=== PATIENT | male | born 1955 | race Caucasian/White ===

== ENCOUNTER → 2017-06-27 05:45 | Outpatient (CLI) | payer OTHER, SELFPAY ==
[2017-06-27 07:18] LABS: AST(SGOT) 28 U/L (15-37); Alanine Aminotransfer ALT/SGPT 30 U/L (16-61); Alkaline Phosphatase 111 U/L (45-117); Bilirubin, Direct 0.23 mg/dL (0.00-0.30); Cholesterol 176 mg/dL (200); Globulin 4.1 g/dL (2.2-4.2); High Density Lipoprotein 56 mg/dL; Protein, Total 8.1 g/dL (6.4-8.2); Triglycerides 75 mg/dL; Very Low Density Lipoprotein 15 mg/dL (5-40)
== END ==
PROVIDERS: Visit Provider Nurse Practitioner Family
DX: E78.5 Hyperlipidemia, unspecified (principal)
CPT/HCPCS: 36415; 80061; 80076

== ENCOUNTER → 2018-03-06 08:58 | Outpatient (CLI) | payer MEDICAID, SELFPAY ==
--- NOTE | 2018-03-06 09:15 | RAD_ITS ---
PROCEDURE: Fluoroscopic guided Hip Injection DATE: March 06, 2018. INDICATION: Male, 63 years old. Chronic hip pain. Osteoarthritis. PHYSICIAN: Alvin Daugherty M.D. MEDICATIONS: 6 mg of the betamethasone and 3 cc of 1% lidocaine. 2% lidocaine administered subcutaneously for local anesthesia. ACCESS SITE: Right hip. NEEDLE: 22-gauge spinal needle. FLUOROSCOPY TIME (if supplied): (35 seconds) minutes/seconds FINDINGS: The risks, benefits, and alternatives to the procedure were explained to the patient. The specific risks of bleeding, infection, and neurovascular injury were detailed and accepted. Witnessed informed consent was obtained. A 22-gauge spinal needle was positioned under radiographic fluoroscopic localization. Approximately 2 cc of Isovue 300 instilled for localization purposes. Medication was then injected. The patient tolerated the procedure well without any immediate complications. The patient was placed supine with head elevated and returned to the floor in stable condition. RAD/Inj/Asp John Jt Should/Hip/Knee IMPRESSION: 1. Successful fluoroscopic guided hip injection. Electronically Signed: Alvin Daugherty MD at 10:02 EST Tel [phone], Service support ,
== END ==
PROVIDERS: PCP Nurse Practitioner Family; Referring Provider Nurse Practitioner Family; Visit Provider Physician Assistant Surgical
DX: M16.11 Unilateral primary osteoarthritis, right hip (principal)
CPT/HCPCS: 20610; 77002; Q9965; J0702

== ENCOUNTER 2018-10-23 10:13 | Inpatient (IN) | payer MEDICAID, SELFPAY ==
--- NOTE | 2018-09-28 23:04 | PCM.HP.BLA ---
History and Physical Patient Name: Elgin Hoyos : 1955 From: VITO SEPULVEDA PA-C DATE OF SURGERY: 10/20/2018 SCHEDULED PROCEDURE: right total hip arthroplasty HISTORY OF PRESENT ILLNESS: Preoperative history and physical exam was performed on September 26, 2018. This is a 63-year-old male who has had ongoing pain for the past couple years. Patient has had a previous left total hip arthroplasty by Dr. Terrell Mascorro February 10, 2014. Patient states his pain has progressively become worse over the past several months. Patient has had a previous corticosteroid injection in March which only gave him approximately 3 weeks of relief. Patient states he has increased pain with walking. He has difficult time with activities of daily living including bathing/showering, getting dressed, housework, and shopping. Patient has tried conservative measures consisting of rest, elevation with minimal relief. He only received 3 weeks relief with the right hip intra-articular injection. Patient has been through formal physical therapy and home exercises without relief in symptoms. He has been using oral medications consisting of acetaminophen. He denies previous surgery on the right hip. Patient has medical history pertinent for previous heart bypass in 2012. He has hypertension and coronary artery disease. He currently denies chest pain, reverse chills, recent infections, or shortness of breath. We are getting surgical clearance from patient's agent producer Dr. King. After failing conservative measures and discussing treatment options with Dr. Terrell Mascorro, the patient would like to proceed with a right total hip arthroplasty. REVIEW OF SYSTEMS: ROS: Const: Denies anorexia, change in appetite, fever, difficulty sleeping, weight change. CV: Denies chest pain, heart murmur, irregular heartbeat and peripheral vascular disease. Resp: Denies asthma, cough, pneumonia, sleep apnea, shortness of breath, tuberculosis and wheezing. GI: Denies constipation, diarrhea, heartburn, nausea, rectal itching, bloody stools and vomiting. : Denies incontinence. Musculo: Reports pain, but denies leg swelling, trouble walking and weakness. Skin: Denies Raynaud's, history of shingles and tattoo. Neuro: Denies ambulatory dysfunction, dizziness, numbness/tingling and tremor. Psych: Denies anxiety, depression, insomnia, mental illness and stress. Jerson/Lymph: Denies anemia, bleeding/bruising tendency and past transfusion. Reviewed, no changes. PAST MEDICAL HISTORY: Advance Care Plan: No Advance Directives Effective Date: 02/20/2018 PMH: Medical Problems: High Blood Pressure, Arthritis, Inflammatory Polyarthropathy, Hypercholesterolemia, Coronary Artery Disease (CAD) Accidents: None Surgical Hx: Heart Ablation - 5 YEARS AGO [facility] Heart Bypass (CABG) LT THR - (02/10/2014) K @ [facility] Anesthesia Complications: None Assistive Devices: Glasses Reviewed, no changes. SOCIAL HISTORY: SH: Marital: Single.Occupation: Retired.Work Status: Currently Working.Hand Dominance: Right-handed. Personal Habits: Cigarette Use: Former Cigarette Smoker.Smokeless Tobacco: Never Used Smokeless Tobacco.E-Cigarette Use: Never used.Alcohol: Has consumed alcohol in the past.Drug Use: Denies Use.Enjoy Exercising: Never Exercises. Reviewed and updated. VITALS: Ht: 70.5 Wt: 183lb Wt k.009 BMI: 25.9 BP: 174/82 Pulse: 80 Resp: 20 T: 97.4 T: 36.3C ALLERGIES: Lipitor MEDICATIONS: Metoprolol Tartrate 50mg 1 tab PO bid, Pravastatin Sodium 40 mg 1 tab by mouth at bedtime, [place] 3 1000 mg 1po bid, Ezetimibe 10 mg 1po qday, Prilosec 40 mg 1po bid, Hydralazine HCL 25 mg take 1 tablet by mouth twice daily, Amlodipine Besylate 10 mg 1 by mouth every day, Aspirin 81 81 mg 1 pill 2x/day by mouth PRE-OP EXAM: General appearance:NORMAL Other: Eyes: Conjunctivae and lids: NORMAL Pupils: ERR Ears, Nose, Mouth, and Throat: NORMAL Other: Inspection of lips, teeth and gums: NORMAL Other: Neck: Examination of neck: no masses noted. Respiratory: Assessment of respiratory effort: NORMAL Other: Auscultation of lungs: clear to auscultation no wheezes, rhonchi or rales. Cardiovascular: Auscultation of heart: regular rate and rhythm, no murmurs, gallops or rubs. Gastrointestinal: Exam of abdomen: soft, nontender, nondistended bowel sounds present. PHYSICAL EXAMINATION: Patient walks with an antalgic gait. Patient has tears to palpation over the lateral aspect of the right hip. Right hip range of motion limited with internal rotation 5, external rotation 15, flexion 90. There is increased pain with internal rotation, external rotation and flexion. Sensation intact to light touch. Neurovascularly intact. IMAGING STUDIES: X-rays were obtained at [facility] on September 26, 2018 of the right hip including AP and crossfire lateral which reveals severe osteoarthritis with [id number] joint loss, subchondral sclerosis, osteophyte formation, and subchondral cyst formation. No acute findings for fracture. No lytic or blastic lesions. IMPRESSION: 1. Severe right hip osteoarthritis 2. Hypertension 3. Hypercholesterolemia 4. Coronary artery disease 5. History of previous heart bypass 2012 and heart ablation 5 years ago PLAN: Dr. Terrell Mascorro did discuss and review with the patient all treatment options including surgical versus nonsurgical options. Patient does wish to proceed with the above-stated procedure. Potential risks, benefits, and complications of the procedure were discussed in detail including but not limited to , infection, nerve and blood vessel damage, persistent pain, numbness, tingling, paresthesias, blood clot, pulmonary embolism, and requirement for possible further surgery. The patient expressed full understanding and has no further questions for the doctor. Patient does agree to proceed with the above-stated procedure and has signed the surgery consent form. This dictation was created using voice recognition software. Phonetic and/or grammatical errors may exist.. ___ I have re-examined the patient. There are no clinical changes since date of exam. ___ See progress notes for changes. ___ Dictated on admission Date: Time: Signature:
[2018-09-29 14:21] VITALS: BP 162/79; PULSE 75; RESP 16; TEMP 36.6; O2SAT 96; BMI 25.0
--- NOTE | 2018-09-29 14:39 | SDCEKG_ITS ---
Test Reason : Blood Pressure : / mmHG Vent. Rate : 070 BPM Atrial Rate : 070 BPM P-R Int : 126 ms QRS Dur : 140 ms QT Int : 416 ms P-R-T Axes : 066 081 015 degrees QTc Int : 449 ms Normal sinus rhythm Right bundle branch block T wave abnormality, consider lateral ischemia ; IVCD Effect Abnormal ECG Confirmed by CHRISSY HUTCHINSON, AMADOU ([id number]), development editor COBY CARNEY ([id number]) on 10/01/2018 10:08:27 AM Referred By: Terrell Mascorro Confirmed By:AMADOU LOWE MD
[2018-09-29 15:09] LABS: Absolute Lymphocyte Count 1.85 X10^3/uL (0.83-4.51); Absolute Neutrophil Count 5.6 X10^3/uL (2.0-7.7); Basophil# 0.09 X10^3/uL; Eosinophil# 0.34 X10^3/uL; Eosinophils% 3.9 % (0-5); Hematocrit 40.4 % (40-54); Hemoglobin 13.1 g/dL (13.0-16.5); Lymphocyte # 1.85 X10^3/ul (4.0); Lymphocyte % 21.4 % (19-41); Mean Corp Hgb Conc 32.4 g/dL (32-36); Mean Corpuscular Hgb 29.2 pg (27.0-32.0); Mean Corpuscular Volume 90.2 fL (80-94); Mean Platelet Vol. 10.5 fl (6.2-12.0); Monocyte# 0.77 X10^3/uL; Monocyte% 8.9 % (0-10); NRBC Flagged by Analyzer 0 % (0-5); Neutrophil # 5.57 X10^3/uL (2.7-7.7); Neutrophil % 64.3 % (47-70); Platelet Count 370 K/mm3 (150-450); RBC Distribution Width SD 42.5 fl (35.1-43.9); Red Blood Count 4.48 M/mm3 (4.6-6.2); White Blood Count 8.7 K/mm3 (4.4-11.0)
[2018-09-29 15:49] LABS: Anion Gap 9 (5-15); BUN 34 mg/dL (7-18); Calcium,Total 9.2 mg/dL (8.5-10.1); Chloride 106 mmol/L (98-107); EST Glomerular Filtration Rate 44 mL/min (>60); Est Glom Filt Rate - Afr Amer 53 mL/min (>60); Estimated Creatinine Clearance 49.45 ml/min; Glucose 115 mg/dL (74-106); Potassium 4.2 mmol/L (3.5-5.1); Sodium Level 138 mmol/L (136-145)
[2018-10-20] MEDS: Cefazolin 2 GM in 0.9% Normal Saline 100 ML IV (12:13)
[2018-10-23] VITALS (11 sets, daily range): BP systolic 111–169; BP diastolic 52–91; PULSE 59–87; RESP 16–18; TEMP 36.4–37; O2SAT 97–100; BMI 25.0
--- NOTE | 2018-10-23 | HIP_PTH ---
PATIENT: MARCIA YUNG LOC: MS3 U#:[id number] AGE/SX: 63/M ROOM: [facility] [place] RE10/23/[address]: Dr. Terrell Mascorro DO : 1955 BED: 1 DIS: 10/24/2018 SPEC #: [id number] RECD: 10/23/18 14:10 STATUS: EZEArina REAlden #: [id number] TNE: 10/23/18 00:[address]: Terrell Mascorro DEPT: SURGICAL PATHOLOGY RECD BY: Diego Ham ENTERED: 10/23/18 14:11 SP TYPE: TOTAL HIP OTHR DR: Marisol Jaimes, SOLUTION SALES SENIOR EXECUTIVE-C Tissues: Hip, NOS Procedures: Decalcification bone/plaque Surgery Specimen Level IV HEADER OPERATION: ERAS, Total hip replacement PRE-OP DIAGNOSIS: Severe right hip osteoarthritis TISSUE SUBMITTED: Right femoral head bone and tissue MICROSCOPIC DIAGNOSIS Bone and soft tissue of right hip, total hip resection: Severe degenerative joint disease. Synovium with mild hyperplasia and chronic inflammation. AM:ata 10/30/18 MICROSCOPIC DESCRIPTION Slides are reviewed. GROSS DESCRIPTION Received is one container labeled with the patient's name and designated right femoral head bone and tissue. The specimen consists of a sierra femoral head with portion of femoral neck. The femoral head measures 6 x 5.5 x 5.5 cm and the femoral neck measures up to 2 cm in length. The articular surface displays prominent osteophyte formation, eburnation and bone erosion. Also present in the specimen container are multiple irregular fragments of bone reamings and pink-yellow soft tissue measuring in aggregate 8 x 8 x 3 cm. Cytotechnologist/Histotechnologist sections are submitted in two cassettes as follows: 1 - soft tissue, 2 - bone after decalcification. / SJ:sp 10/23/18 TC:3 [facility]: [id number]
[2018-10-23] MEDS: Gabapentin 600 MG Tablet PO ×3 (11:02→11:14)
[2018-10-23] MEDS: Acetaminophen 500 MG Tablet 1000 MG PO ×3 (11:03→21:28)
[2018-10-23] MEDS: Magnesium Sulfate 4gm/100mL 4 GM/100 ML IV.SOLN. IV (11:05)
[2018-10-23] MEDS: Lactated Ringers 1,000 ML 75 ML IV (11:15)
--- NOTE | 2018-10-23 12:09 | RAD_ITS ---
STUDY: X-RAY - PELVIS AND RIGHT HIP REASON FOR EXAM: Male, 63 years old. The patient is status post right hip replacement. TECHNIQUE: 2 views of the pelvis and hip. COMPARISON: None. FINDINGS: The patient is status post right hip replacement. There is good alignment. Postoperative soft tissue swelling. Remote left hip replacement. RAD/Hip Min 2 Views (Portable) IMPRESSION: Status post right hip replacement. There is good alignment. Postoperative soft tissue changes. Electronically Signed: Alvin Daugherty, at 14:50 EDT , Service support ,
[2018-10-23] MEDS: Cefazolin 2 GM in 0.9% Normal Saline 100 ML IV (12:13)
--- NOTE | 2018-10-23 13:11 | PCM.OPRPT ---
Report of Operation Date of Procedure: 10/23/18 Pre-Operative Diagnosis: OA right hip Post-Operative Diagnosis: same Surgery/Procedure Performed:: Right THR Description of Surgical Findings:: Primary Surgeon/Physician: Terrell Mascorro deck scaler: Yefri Thapa PA-C deck scaler: Pre-Operative Diagnosis: OA right hip Post-Operative Diagnosis: same Surgery/Procedure Performed: Right THR Estimated Blood Loss: 75 cc Specimen's Removed: bone Type of Anesthesia: spinal ASA Class: ASA3 Severe Disease Implants: [Dorene size 54 tritanium cup with neutral length MDM liner\head, Size 6 Accolade 2 stem ] Surgical Indications: Patient has severe end-stage osteoarthritic changes in the [right ] hip. They have failed conservative measures including activity modification, anti-inflammatories, use of assistive devices. This to the point where the pain affects their ability to enjoy life and complete activities of daily living without discomfort. Patient has elected to undergo the above procedure Procedure Description: The patient was greeted in the preoperative area the [right ] hip was marked with surgical marker preoperative antibiotics administered. The patient was then taken to or suite in stable condition. Preoperative tranexamic acid was also utilized. Once the patient was placed in the supine position on the operating room table and once adequate anesthesia was obtained they were then placed in the lateral decubitus position with the surgical hip facing the field. All bony prominences were well-padded. A commercial hip position was utilized. The appropriate extremity was then prepped and draped in usual sterile fashion. Ioban was placed on the skin. Surgical timeout was performed and surgery was commenced. A standard posterior approach to the hip was then performed. Incision was planned and carried out with a #10 blade scalpel. Dissection was then carried length of the incision to the IT band which was split proximally and distally. A Charnley retractor was then placed for soft tissue retraction exposing the piriformis. A standard posterior capsulotomy was performed. Severe eburnation of bone was noted and periarticular osteophytes were identified consistent with severe end-stage osteoarthritis. A femoral neck osteotomy guide was used to sara the proximal femur. A femoral osteotomy was then created approximately 1 fingerbreadth above the lesser trochanter. This was measured and placed on the back table. Once this was complete acetabular retractors were placed anteriorly and posteriorly. Labrum was then removed from the acetabulum exposing the entire cup of the acetabulum. Sequential reaming was then commenced and the acetabulum was medialized and sequentially widened in order to accommodate appropriate size cup. The acetabular cup was then impacted into position to the appropriate depth referencing approximately 30? anteversion and 45? of inclination. Excellent purchase was obtained. [2] appropriate sized cancellous screws were placed in the cup. An appropriate size MDM liner was then placed. Attention was then turned to the femoral preparation. The hip was placed in the 90/90 position and a lateralizing box osteotome was utilized. Femoral starting awl was used followed by sequential broaching to the appropriate size. Excellent purchase was obtained with the stem no stem subsidence and excellent rotational stability was confirmed. A calcar reamer was then used in the trial head neck was placed on the broach. The hip was then located and taken through full range of motion flexion internal and external rotation as well as extension. Excellent stability was noted no impingement was identified of the components and leg lengths appear to be appropriate. The hip was at this point dislocated and the trial femoral components were removed. The final femoral stem was then implanted and impacted to the appropriate depth. Again excellent purchase was obtained no stem subsidence or rotational instability was noted. The hip was once again trialed and confirmation of leg length and stability was performed. Soft tissue tension also appeared to be appropriate. At this point the hip was redislocated and the trunnion was cleaned and dried meticulously in the appropriate size MDM femoral head was placed on the clean dry trunnion using a 12/14 Leonardo taper. The hip was once again relocated and again taken through full range of motion. I did inject a cocktail of postoperative pain medication in the deep and superficial tissues. Copious irrigation was performed. Anatomic closure of the piriformis tendon was performed through drill holes in the greater trochanter. A #1 Vicryl 0 Vicryl was utilized in subcutaneous tissue and surgical gilda were placed in the skin. A well-padded nonadherent dressing was applied. Patient was taken to PACU in stable condition. No complications were identified. Will follow standard postop protocol for total hip arthroplasty. My assistant store manager operations played a vital role in the procedure beginning with positioning, holding retraction of soft tissues, positioning the leg to optimize visualization during the procedure and assisting with wound closure. deck scaler: Dwayne Thapa Type of Anesthesia:: Spinal Anesthesiologist: Juliano Dorsey Specimen's removed: bone Estimated Blood Loss (mL): 75cc - Admit VTE Documentation VTE Present on Admission: No VTE Mechan Device Prophylaxis: SCD's, Thigh High DIANNA Hose VTE Pharm Prophylaxis ordered?: Yes
[2018-10-23] MEDS: Lactated Ringers 1,000 ML 125 ML IV ×3 (14:15→21:00)
[2018-10-23] MEDS: Aspirin 325 MG Tablet PO (16:52)
[2018-10-23] MEDS: Cefazolin 1 GM/50 ML BAG IV (20:59)
[2018-10-23] MEDS: Pravastatin 40 MG Tablet PO (21:28)
[2018-10-23] MEDS: hydrALAZINE 25 MG Tablet PO (21:28)
[2018-10-23] MEDS: Metoprolol Tartrate 50 MG Tablet PO (21:28)
[2018-10-23] MEDS: Senna/Docusate Sodium 1 Tablet 2 TABLET PO (21:28)
[2018-10-23] MEDS: cycloBENZAPRine HCl 10 MG Tablet PO (21:28)
[2018-10-23] MEDS: Pantoprazole Sodium 40 MG Tablet PO (21:28)
[2018-10-24] VITALS (7 sets, daily range): BP systolic 86–140; BP diastolic 46–74; PULSE 63–89; RESP 16–21; TEMP 36.4–36.8; O2SAT 96–99
[2018-10-24] MEDS: oxyCODONE 5 MG Tablet PO ×2 (01:16→07:48)
[2018-10-24] MEDS: Cefazolin 1 GM/50 ML BAG IV (04:33)
[2018-10-24 05:11] LABS: Bedside Glucose 86 mg/dL (70-110)
[2018-10-24 05:35] LABS: Hemoglobin 10.7 g/dL (13.0-16.5); Mean Corp Hgb Conc 32.4 g/dL (32-36); Mean Corpuscular Hgb 29.1 pg (27.0-32.0); Mean Corpuscular Volume 89.7 fL (80-94); Mean Platelet Vol. 10.1 fl (6.2-12.0); Platelet Count 303 K/mm3 (150-450); RBC Distribution Width CV 12.8 % (11.6-14.6); RBC Distribution Width SD 42.1 fl (35.1-43.9); Red Blood Count 3.68 M/mm3 (4.6-6.2); White Blood Count 11.3 K/mm3 (4.4-11.0)
[2018-10-24] MEDS: Acetaminophen 500 MG Tablet 1000 MG PO ×2 (06:00→13:26)
[2018-10-24 06:11] LABS: Anion Gap 7 (5-15); BUN 13 mg/dL (7-18); BUN/Creat Ratio 10.3 RATIO (10-20); Calcium,Total 8.2 mg/dL (8.5-10.1); Chloride 105 mmol/L (98-107); Creatinine, Serum 1.26 mg/dL (0.70-1.30); EST Glomerular Filtration Rate 62 mL/min (>60); Est Glom Filt Rate - Afr Amer 74 mL/min (>60); Estimated Creatinine Clearance 66.72 ml/min; Glucose 122 mg/dL (74-106); Potassium 3.5 mmol/L (3.5-5.1); Sodium Level 137 mmol/L (136-145)
[2018-10-24] MEDS: Ondansetron 4 MG/2 ML Vial IV (06:46)
[2018-10-24] MEDS: 0.9% NaCl Peripheral Flush Adult/Peds IV (06:47)
[2018-10-24] MEDS: hydrALAZINE 25 MG Tablet PO (07:46)
[2018-10-24] MEDS: Aspirin 325 MG Tablet PO (07:46)
[2018-10-24] MEDS: amLODIPine 10 MG Tablet PO (07:47)
[2018-10-24] MEDS: Senna/Docusate Sodium 1 Tablet 2 TABLET PO (07:47)
[2018-10-24] MEDS: Ezetimibe 10 MG Tablet PO (07:47)
[2018-10-24] MEDS: Pantoprazole Sodium 40 MG Tablet PO (07:47)
[2018-10-24] MEDS: Metoprolol Tartrate 50 MG Tablet PO (07:49)
--- NOTE | 2018-10-24 09:45 | CASEMGMT ---
ESMER BIGGS Face to Face with patient for initial transition planning/care coordination assessment. RN KALYAN introduced self and role at [facility]. Patient sitting in chair, alert and oriented. Patient willing to participate in assessment and is able to answer all questions appropriately. Care providers, pharmacy, and demographics verified. Patient wishes to discharge home and is setup with [facility] for outpatient therapy . Patient states he has no further needs or concerns at this time. CM to follow for discharge planning needs that may arise. PCP: Fiona Specialists: Electrical Installation Inspector Bernie Preferred Pharmacy: [facility] Insurance: [place] Prescription Benefit: yes Living Will/HPOA: None LNOK: sister Living Arrangements: Patient lives alone in mobile home, ramp to enter the home. Transportation: friend Joshua [place]/C: Patient has walker and cane. Patient is scheduled for outpatient therapy at [facility] Disposition Plan: Patient to discharge home with outpatient therapy, family support, and follow-up plans in place. Marie NEGRETE, RN, CM
[2018-10-24] MEDS: cycloBENZAPRine HCl 10 MG Tablet PO (10:51)
--- NOTE | 2018-10-24 12:03 | PCM.PN.ORT ---
Subjective: Patient sitting up in bed. Patient states pain is well-managed. Having some mild spasms in the right quadriceps region. Patient states he is ready for discharge home. Denies chest pain, shortness breath, calf pain, nausea vomiting. Objective: Dressings clean dry intact. Negative signs and symptoms of DVT. Patient's vitals and labs within normal limits. Patient is strong dorsalis pedis, posterior tibial pulses on the right leg. Patient has good plantar flexion dorsiflexion of the right foot. Patient is afebrile. Patient has no obvious respiratory distress, speaking in full sentences. - Physical Exam General: Alert, Oriented x3, Cooperative HEENT: PERRLA Oral: Moist Mucosa Cardiovascular: Regular rate Neurological: Cranial nerves II-XII grossly intact Psych/Mental Status: Normal Affect, Alert and oriented to time, place, person, mood and affect Vital Signs Temp Pulse Resp BP Pulse Ox 97.9 F 63 16 129/74 H 99 10/24/18 11:00 10/24/18 11:00 10/24/18 11:00 10/24/18 11:00 10/24/18 11:00 Oxygen Flow Rate (L/min) 6 Oxygen Delivery Method Room Air Weight: 83.6 kg Body Mass Index (BMI) 25.0 Intake and Output for Last 24 Hours 10/22/18 10/23/18 10/24/18 23:59 23:59 23:59 Intake Total 3448.75 / 3448.75 2300 / 2300 Output Total 1225 / 1225 Balance 3448.75 / 3448.75 1075 / 1075 Laboratory Tests Past 24 Hrs 10/24/18 10/24/18 05:10 05:10 WBC 11.3 H RBC 3.68 L Hgb 10.7 L Hct 33.0 L MCV 89.7 MCH 29.1 MCHC 32.4 RDW Std Deviation 42.1 RDW Coeff of Minnie 12.8 Plt Count 303 MPV 10.1 Sodium 137 Potassium 3.5 Chloride 105 Carbon Dioxide 25.0 Anion Gap 7 BUN 13 Creatinine 1.26 Estim Creat Clear Calc 66.72 Est GFR (MDRD) Af Amer 74 Est GFR (MDRD) Non-Af 62 BUN/Creatinine Ratio 10.3 Glucose 122 H Calcium 8.2 L POC Glucose 10/23/18 10:55 POC Glucose 86 Medical Necessity - Tobacco Use Smoking Status: Former smoker Tobacco Use: Non-smoker Assessment/Plan All Active Problems (Last Reviewed 01/31/17 @ 14:11 by Seema Barros) Xbxzp-Ieppbprma-Mlpir (WPW) syndrome (Resolved) Status post right total hip arthroplasty Plan 1. Continue all pain medications as prescribed 2. Continue with outpatient physical therapy. Weight-bear as tolerated with walker 3. Aspirin 325 mg 1 p.o. every 12 hours x30 days for postop DVT prophylaxis 4. Shower 3 days 5. Follow-up as scheduled, see pink sheet 6. Discharge home today after p.m. therapy
--- NOTE | 2018-10-24 12:21 | PCM.DC.THR ---
Discharge Diet: No Restrictions Discharge Activity: May Not Drive, May Shower, Use Walker May shower in (days): 3 - only if incision is dry and without drainage. Do NOT soak/submerge in tub/pool/french/stream/hot tub. Weight Bearing Status: Weight bearing as tolerated Elevate: Operative Extremity Call your doctor if your incision/area has: Continuous Slow Oozing, Sudden Increased Bleeding, Increased Pain/ Swelling, Increased Redness, Foul Smelling Discharge Call your doctor if you observe: Fever of 101 or Higher, Inability to urinate, Inability to have a bowel movement, Shortness of breath, Fainting spells, Chest pain, Increased palpitations (irregular heartbeat), Calf discomfort, Uncontrolled pain Cleanse incision/area with: Soap & Water Allergies/Adverse Reactions: Allergies atorvastatin calcium [From Lipitor] Allergy (Verified 10/23/18 10:47) Pain in joints Medications to take at Discharge ezetimibe 10 mg tablet 10 mg PO QDAY 01/31/17 Amlodipine [Norvasc] 10 mg PO DAILY 09/29/18 Metoprolol Tartrate [Lopressor (beta jessica)] 50 mg PO BID 09/29/18 [place]-3 Fatty Acids/Fish Oil [[place] 3 1,000 mg Softgel] 2 ea PO DAILY 09/29/18 Omeprazole [Prilosec] 40 mg PO BID 09/29/18 Pravastatin [Pravachol] 40 mg PO QHS 09/29/18 hydrALAZINE [Apresoline] 25 mg PO BID 09/29/18 Acetaminophen [Tylenol] 1,000 mg PO Q8 #90 tab 10/24/18 Aspirin 325 mg PO BIDCM #60 tab 10/24/18 Oxycodone [Oxyir] 5 - 10 mg PO Q6H PRN PRN 7 Days #56 tab 10/24/18 cycloBENZAPRine HCl [Flexeril] 10 mg PO TID PRN PRN #30 tab 10/24/18 The following prescriptions were given: Aspirin 325 mg PO BIDCM #60 tab Prescription Printed cycloBENZAPRine HCl [Flexeril] 10 mg PO TID PRN PRN #30 tab PRN Reason: muscle spasms Prescription Printed Oxycodone [Oxyir] 5 - 10 mg PO Q6H PRN PRN 7 Days #56 tab PRN Reason: Severe Pain (6-12/04) Prescription Printed Acetaminophen [Tylenol] 1,000 mg PO Q8 #90 tab Prescription Printed Primary Care Physician: Marisol Jaimes NP-C [Primary Care Provider] - Test Results: Test results from this visit will be discussed in further detail at your follow-up appointment, if applicable. Please Follow Up With: Dwayne Thapa PA-C When: see pink sheet
[2018-10-24] MEDS: Tamsulosin HCl 0.4 MG Capsule PO (12:31)
--- NOTE | 2018-10-24 14:13 | NURSING ---
WHILE TRANSFERRING PT FROM CHAIR TO BED. PT GOT DIZZY AND FELL BACK INTO CHAIR. PT DID NOT FALL. ASSISTED PT BACK TO BED. VITALS WNL. EDELMIRA KNIGHT NOTIFIED THAT PT WAS DIZZY.
== END 2018-10-24 16:35 | disposition home or self-care (01) | DRG 301 ==
LOC: ACINP 10:14 → MS3 10-24 09:33
PROVIDERS: Admitting Provider Orthopaedic Surgery; Family Provider Nurse Practitioner Family; PCP Nurse Practitioner Family; Referring Provider Orthopaedic Surgery; Visit Provider Orthopaedic Surgery
PROC: 0SR90JZ Replacement of Right Hip Joint with Synthetic Substitute, Open Approach (ICD-10-PCS; CPT 27130; principal; 2018-10-23 11:35)
DX: M16.11 Unilateral primary osteoarthritis, right hip (principal); Z96.642 Presence of left artificial hip joint; I25.10 Atherosclerotic heart disease of native coronary artery without angina pectoris; I10 Essential (primary) hypertension; Z95.1 Presence of aortocoronary bypass graft; Z87.891 Personal history of nicotine dependence; E78.00 Pure hypercholesterolemia, unspecified; R33.9 Retention of urine, unspecified
CPT/HCPCS: 36415; 73502; 80048; 82962; 85025; 85027; 87081; 88305; 88311; 93005; 97110; 97162; 97166; 97530; C1776; J7120; A4216; J2405

== ENCOUNTER → 2019-01-28 15:49 | Outpatient (CLI) | payer MEDICAID, SELFPAY ==
[2018-10-23 10:49] VITALS: BMI 25.0
[2019-01-28 17:36] LABS: Absolute Lymphocyte Count 2.28 X10^3/uL (0.83-4.51); Absolute Neutrophil Count 5.6 X10^3/uL (2.0-7.7); Basophil# 0.07 X10^3/uL; Basophil% 0.7 % (0-1); Eosinophil# 0.54 X10^3/uL; Eosinophils% 5.7 % (0-5); Hematocrit 44.4 % (40-54); Hemoglobin 14.4 g/dL (13.0-16.5); Lymphocyte # 2.28 X10^3/ul (4.0); Lymphocyte % 23.9 % (19-41); Mean Corp Hgb Conc 32.4 g/dL (32-36); Mean Corpuscular Hgb 29.3 pg (27.0-32.0); Mean Corpuscular Volume 90.2 fL (80-94); Mean Platelet Vol. 11.1 fl (6.2-12.0); Monocyte# 1.03 X10^3/uL; Monocyte% 10.8 % (0-10); NRBC Flagged by Analyzer 0 % (0-5); Neutrophil # 5.59 X10^3/uL (2.7-7.7); Neutrophil % 58.7 % (47-70); Platelet Count 354 K/mm3 (150-450); RBC Distribution Width CV 13.7 % (11.6-14.6); RBC Distribution Width SD 45.3 fl (35.1-43.9); Red Blood Count 4.92 M/mm3 (4.6-6.2); White Blood Count 9.5 K/mm3 (4.4-11.0)
[2019-01-28 18:03] LABS: AST(SGOT) 20 U/L (15-37); Alanine Aminotransfer ALT/SGPT 31 U/L (16-61); Albumin, Serum 4.2 g/dL (3.2-5.0); Alkaline Phosphatase 135 U/L (45-117); Anion Gap 8 (5-15); BUN 27 mg/dL (7-18); BUN/Creat Ratio 16.2 RATIO (10-20); Calcium,Total 9.2 mg/dL (8.5-10.1); Chloride 105 mmol/L (98-107); Cholesterol 174 mg/dL (200); Creatinine, Serum 1.67 mg/dL (0.70-1.30); EST Glomerular Filtration Rate 44 mL/min (>60); Est Glom Filt Rate - Afr Amer 54 mL/min (>60); Globulin 4.3 g/dL (2.2-4.2); Glucose 121 mg/dL (74-106); High Density Lipoprotein 43 mg/dL; Protein, Total 8.5 g/dL (6.4-8.2); Sodium Level 137 mmol/L (136-145); Thyroid Stim Hormone (TSH) 0.49 uIU/mL (0.358-3.74); Triglycerides 317 mg/dL; Very Low Density Lipoprotein 63 mg/dL (5-40)
[2019-01-29 09:49] LABS: Hemoglobin A1c 5.5 % (4.2-6.3)
== END ==
PROVIDERS: Family Provider Family Medicine; PCP Family Medicine; Referring Provider Family Medicine; Visit Provider Family Medicine
DX: I10 Essential (primary) hypertension (principal); E78.00 Pure hypercholesterolemia, unspecified; R73.09 Other abnormal glucose
CPT/HCPCS: 36415; 80053; 80061; 83036; 84443; 85025

== ENCOUNTER → 2019-02-03 11:22 | Outpatient (CLI) | payer MEDICAID, SELFPAY ==
[2018-10-23 10:49] VITALS: BMI 25.0
[2019-02-03 14:06] LABS: Anion Gap 9 (5-15); BUN 21 mg/dL (7-18); BUN/Creat Ratio 14.9 RATIO (10-20); Calcium,Total 9.4 mg/dL (8.5-10.1); Chloride 103 mmol/L (98-107); Creatinine, Serum 1.41 mg/dL (0.70-1.30); EST Glomerular Filtration Rate 54 mL/min (>60); Est Glom Filt Rate - Afr Amer 65 mL/min (>60); Glucose 93 mg/dL (74-106); Potassium 4.2 mmol/L (3.5-5.1); Sodium Level 137 mmol/L (136-145)
== END ==
PROVIDERS: Family Provider Family Medicine; PCP Family Medicine; Visit Provider Family Medicine
DX: N28.9 Disorder of kidney and ureter, unspecified (principal)
CPT/HCPCS: 36415; 80048

== ENCOUNTER → 2019-07-09 13:39 | Outpatient (CLI) | payer MEDICAID, SELFPAY ==
[2018-10-23 10:49] VITALS: BMI 25.0
[2019-07-09 15:19] LABS: Absolute Lymphocyte Count 2.24 X10^3/uL (0.83-4.51); Absolute Neutrophil Count 6.3 X10^3/uL (2.0-7.7); Basophil# 0.06 X10^3/uL; Basophil% 0.6 % (0-1); Eosinophil# 0.47 X10^3/uL; Eosinophils% 4.9 % (0-5); Hematocrit 44.2 % (40-54); Lymphocyte # 2.24 X10^3/ul (4.0); Lymphocyte % 23.4 % (19-41); Mean Corp Hgb Conc 31.7 g/dL (32-36); Mean Corpuscular Hgb 29.4 pg (27.0-32.0); Mean Corpuscular Volume 92.9 fL (80-94); Mean Platelet Vol. 11.1 fl (6.2-12.0); Monocyte# 0.45 X10^3/uL; Monocyte% 4.7 % (0-10); NRBC Flagged by Analyzer 0 % (0-5); Neutrophil # 6.32 X10^3/uL (2.7-7.7); Neutrophil % 66.1 % (47-70); Platelet Count 338 K/mm3 (150-450); RBC Distribution Width CV 12.6 % (11.6-14.6); RBC Distribution Width SD 43.2 fl (35.1-43.9); Red Blood Count 4.76 M/mm3 (4.6-6.2); White Blood Count 9.6 K/mm3 (4.4-11.0)
[2019-07-09 15:50] LABS: AST(SGOT) 17 U/L (15-37); Alanine Aminotransfer ALT/SGPT 24 U/L (16-61); Albumin, Serum 3.9 g/dL (3.2-5.0); Alkaline Phosphatase 138 U/L (45-117); Anion Gap 6 (5-15); BUN 17 mg/dL (7-18); BUN/Creat Ratio 13.1 RATIO (10-20); Calcium,Total 9.1 mg/dL (8.5-10.1); Chloride 106 mmol/L (98-107); Cholesterol 153 mg/dL (200); EST Glomerular Filtration Rate 59 mL/min (>60); Est Glom Filt Rate - Afr Amer 72 mL/min (>60); Glucose 145 mg/dL (74-106); High Density Lipoprotein 44 mg/dL; Potassium 3.7 mmol/L (3.5-5.1); Protein, Total 7.9 g/dL (6.4-8.2); Sodium Level 140 mmol/L (136-145); Triglycerides 137 mg/dL; Very Low Density Lipoprotein 27 mg/dL (5-40)
[2019-07-09 15:52] LABS: Vitamin D,25 Hydroxy 22.9 ng/mL
[2019-07-10 11:02] LABS: Hemoglobin A1c 5.7 % (4.2-6.3)
== END ==
PROVIDERS: PCP Family Medicine; Visit Provider Family Medicine
DX: N28.9 Disorder of kidney and ureter, unspecified (principal); I10 Essential (primary) hypertension; E78.00 Pure hypercholesterolemia, unspecified; R73.09 Other abnormal glucose
CPT/HCPCS: 36415; 80053; 80061; 82306; 83036; 85025

== ENCOUNTER → 2019-08-26 14:22 | Outpatient (CLI) | payer MEDICAID, SELFPAY ==
[2018-10-23 10:49] VITALS: BMI 25.0
[2019-08-26 16:17] LABS: PSA,Total - Annual Screen 2.19 ng/mL (0.00-4.00)
== END ==
PROVIDERS: PCP Family Medicine; Visit Provider Family Medicine
DX: Z12.5 Encounter for screening for malignant neoplasm of prostate (principal)
CPT/HCPCS: 36415; 84153; G0103

== ENCOUNTER → 2019-09-23 13:04 | Outpatient (CLI) | payer MEDICAID, SELFPAY ==
[2018-10-23 10:49] VITALS: BMI 25.0
--- NOTE | 2019-09-23 13:08 | CT_ITS ---
STUDY: LOW DOSE CT LUNG CANCER SCREENING REASON FOR EXAM: Male, 64 years old. LUNG SCREEN, 31 YR SMOKER X 1PPD OR MORE, CURRENT NON-SMOKER X 15 YRS, OPEN HEART SURG 2012 RADIATION DOSAGE (If Supplied By Facility): CTDIvol = ( 2.55 ) mGy, DLP = ( 100.48 ) mGycm TECHNIQUE: No contrast was administered. Low dose technique was utilized (average mAS-38 and kVp 120). 1.25 mm axial source images with a slice interval of 1.25-mm were reconstructed in lung windows. 2.5 mm axial source images with a slice interval of 2.5-mm were reconstructed in lung windows. 5.0 mm axial source images with a slice interval of 5.0-mm were reconstructed in soft tissue windows. Nodule measured using lung windows on PACS and/or independent workstation with automated measurement of minimum and maximum diameter. Nodule measurement reported as average diameter rounded to the nearest whole number. Growth is defined as an increase ins size of greater than 1.5 mm. COMPARISON: None. NODULES: No nodules are seen. Emphysema: Hyperinflation. Mild degree of emphysematous changes. Endobronchial lesion: Aorta: Atherosclerotic calcific plaques. Coronary arteries: Coronary artery calcifications. Heart: Prior CABG. Pulmonary artery: Mediastinal nodes: Small benign-appearing mediastinal lymph nodes. Other chest and abdominal findings: Small hiatal hernia. Degenerative changes of the thoracic spine. CT/Low Dose CT Lung Screening IMPRESSION: Lung-RADS category 2 - Continue annual screening with LDCT in 12 months. IMPORTANT NOTES FOR USE: ACR Lung-RADS Version 1.0 Assessment Categories Release Date: June 22, 2013 Category: Coded 0-4 bases on nodule(s) with highest degree of suspicion. Negative screen is defined as categories 1 and 2; a positive screen is defined as categories 3 and 4. Category 3 and 4A nodules that are unchanged on interval CT should be coded as category 2, and individuals returned to screening in 12 months. Category 4X: Category 3 or 4 nodules with additional imaging findings that increase the suspicion of lung cancer, such as spiculation, GGN that doubles in size in 1 year, enlarged lymph notes, etc. Category Modifiers: S (significant finding unrelated to lung cancer) and C (prior history of treated lung cancer) may be added to the 0-4 Lung-RADS Electronically Signed: Alvin Daugherty, at 14:17 EDT , Service support ,
== END ==
PROVIDERS: PCP Family Medicine; Referring Provider Family Medicine; Visit Provider Family Medicine
DX: Z12.2 Encounter for screening for malignant neoplasm of respiratory organs (principal); F17.210 Nicotine dependence, cigarettes, uncomplicated
CPT/HCPCS: G0297

== ENCOUNTER → 2019-12-22 10:51 | Outpatient (CLI) | payer MEDICAID, SELFPAY ==
[2018-10-23 10:49] VITALS: BMI 25.0
[2019-12-22 12:12] LABS: Absolute Lymphocyte Count 2.26 X10^3/uL (0.83-4.51); Absolute Neutrophil Count 5.7 X10^3/uL (2.0-7.7); Basophil# 0.06 X10^3/uL; Basophil% 0.6 % (0-1); Eosinophil# 0.53 X10^3/uL; Eosinophils% 5.4 % (0-5); Hematocrit 44.8 % (40-54); Hemoglobin 14.4 g/dL (13.0-16.5); Lymphocyte # 2.26 X10^3/ul (4.0); Lymphocyte % 22.9 % (19-41); Mean Corp Hgb Conc 32.1 g/dL (32-36); Mean Corpuscular Hgb 30.2 pg (27.0-32.0); Mean Corpuscular Volume 93.9 fL (80-94); Mean Platelet Vol. 11.4 fl (6.2-12.0); Monocyte# 1.23 X10^3/uL; Monocyte% 12.5 % (0-10); NRBC Flagged by Analyzer 0 % (0-5); Neutrophil # 5.74 X10^3/uL (2.7-7.7); Neutrophil % 58.2 % (47-70); Platelet Count 315 K/mm3 (150-450); RBC Distribution Width CV 13.2 % (11.6-14.6); Red Blood Count 4.77 M/mm3 (4.6-6.2); White Blood Count 9.9 K/mm3 (4.4-11.0)
[2019-12-22 12:48] LABS: Vitamin D,25 Hydroxy 31.8 ng/mL
[2019-12-22 12:53] LABS: Hemoglobin A1c 5.6 % (3.8-5.6)
[2019-12-22 13:00] LABS: PTHIN 92.7 pg/mL (18.4-80.1)
[2019-12-22 13:15] LABS: ALB/GLOB Ratio 0.9 RATIO (0.9-2.4); AST(SGOT) 19 U/L (15-37); Alanine Aminotransfer ALT/SGPT 24 U/L (16-61); Albumin, Serum 3.8 g/dL (3.2-5.0); Alkaline Phosphatase 131 U/L (45-117); Anion Gap 4 (5-15); BUN 18 mg/dL (7-18); BUN/Creat Ratio 11.8 RATIO (10-20); Calcium,Total 9.2 mg/dL (8.5-10.1); Chloride 109 mmol/L (98-107); Cholesterol 116 mg/dL (200); Creatinine, Serum 1.52 mg/dL (0.70-1.30); EST Glomerular Filtration Rate 49 mL/min (>60); Est Glom Filt Rate - Afr Amer 60 mL/min (>60); Globulin 4.2 g/dL (2.2-4.2); Glucose 96 mg/dL (74-106); High Density Lipoprotein 53 mg/dL; Phosphorus 2.5 mg/dL (2.5-4.9); Potassium 4.9 mmol/L (3.5-5.1); Sodium Level 138 mmol/L (136-145); Triglycerides 86 mg/dL; Very Low Density Lipoprotein 17 mg/dL (5-40)
== END ==
PROVIDERS: PCP Family Medicine; Referring Provider Family Medicine; Visit Provider Family Medicine
DX: I12.9 Hypertensive chronic kidney disease with stage 1 through stage 4 chronic kidney disease, or unspecified chronic kidney disease (principal); N18.30 Chronic kidney disease, stage 3 unspecified; E78.00 Pure hypercholesterolemia, unspecified; R73.02 Impaired glucose tolerance (oral)
CPT/HCPCS: 36415; 80053; 80061; 82306; 83036; 83970; 84100; 85025

== ENCOUNTER → 2020-04-19 10:28 | Outpatient (CLI) | payer MEDICAID, SELFPAY ==
[2018-10-23 10:49] VITALS: BMI 25.0
[2020-04-19 12:50] LABS: Absolute Lymphocyte Count 1.78 X10^3/uL (0.83-4.51); Absolute Neutrophil Count 6.2 X10^3/uL (2.0-7.7); Basophil# 0.07 X10^3/uL; Basophil% 0.7 % (0-1); Eosinophil# 0.67 X10^3/uL; Eosinophils% 6.9 % (0-5); Hematocrit 42.6 % (40-54); Hemoglobin 13.6 g/dL (13.0-16.5); Lymphocyte # 1.78 X10^3/ul (4.0); Lymphocyte % 18.3 % (19-41); Mean Corp Hgb Conc 31.9 g/dL (32-36); Mean Corpuscular Hgb 29.8 pg (27.0-32.0); Mean Corpuscular Volume 93.4 fL (80-94); Mean Platelet Vol. 11.3 fl (6.2-12.0); Monocyte# 0.97 X10^3/uL; NRBC Flagged by Analyzer 0 % (0-5); Neutrophil # 6.19 X10^3/uL (2.7-7.7); Neutrophil % 63.8 % (47-70); Platelet Count 292 K/mm3 (150-450); RBC Distribution Width CV 13.2 % (11.6-14.6); Red Blood Count 4.56 M/mm3 (4.6-6.2); White Blood Count 9.7 K/mm3 (4.4-11.0)
[2020-04-19 13:01] LABS: Vitamin D,25 Hydroxy 30.4 ng/mL
[2020-04-19 13:06] LABS: Hemoglobin A1c 5.4 % (3.8-5.6)
[2020-04-19 13:09] LABS: ALB/GLOB Ratio 1.2 RATIO (0.9-2.4); AST(SGOT) 18 U/L (15-37); Alanine Aminotransfer ALT/SGPT 26 U/L (16-61); Alkaline Phosphatase 130 U/L (45-117); Anion Gap 7 (5-15); BUN 17 mg/dL (7-18); BUN/Creat Ratio 13.3 RATIO (10-20); Calcium,Total 9.1 mg/dL (8.5-10.1); Chloride 105 mmol/L (98-107); Cholesterol 127 mg/dL (200); Creatinine, Serum 1.28 mg/dL (0.70-1.30); EST Glomerular Filtration Rate 60 mL/min (>60); Est Glom Filt Rate - Afr Amer 73 mL/min (>60); Globulin 3.2 g/dL (2.2-4.2); Glucose 91 mg/dL (74-106); High Density Lipoprotein 53 mg/dL; Potassium 4.7 mmol/L (3.5-5.1); Protein, Total 7.2 g/dL (6.4-8.2); Sodium Level 138 mmol/L (136-145); Triglycerides 103 mg/dL; Very Low Density Lipoprotein 21 mg/dL (5-40)
== END ==
PROVIDERS: PCP Family Medicine; Referring Provider Family Medicine; Visit Provider Family Medicine
DX: I10 Essential (primary) hypertension (principal); E21.3 Hyperparathyroidism, unspecified; E55.9 Vitamin D deficiency, unspecified; E78.00 Pure hypercholesterolemia, unspecified; R73.02 Impaired glucose tolerance (oral)
CPT/HCPCS: 36415; 80053; 80061; 82306; 83036; 83970; 85025

== ENCOUNTER → 2020-07-21 10:49 | Outpatient (CLI) | payer MEDICAID, SELFPAY ==
[2018-10-23 10:49] VITALS: BMI 25.0
[2020-07-21 12:25] LABS: Absolute Lymphocyte Count 2.21 X10^3/uL (0.83-4.51); Absolute Neutrophil Count 5.5 X10^3/uL (2.0-7.7); Basophil# 0.05 X10^3/uL; Basophil% 0.5 % (0-1); Eosinophils% 6.5 % (0-5); Hematocrit 45.8 % (40-54); Hemoglobin 14.6 g/dL (13.0-16.5); Lymphocyte # 2.21 X10^3/ul (0.83-4.51); Lymphocyte % 23.8 % (19-41); Mean Corp Hgb Conc 31.9 g/dL (32-36); Mean Corpuscular Hgb 30.1 pg (27.0-32.0); Mean Corpuscular Volume 94.4 fL (80-94); Mean Platelet Vol. 11.1 fl (6.2-12.0); Monocyte# 0.89 X10^3/uL; Monocyte% 9.6 % (0-10); NRBC Flagged by Analyzer 0 % (0-5); Neutrophil # 5.51 X10^3/uL (2.7-7.7); Neutrophil % 59.3 % (47-70); Platelet Count 304 K/mm3 (150-450); RBC Distribution Width SD 44.8 fl (35.1-43.9); Red Blood Count 4.85 M/mm3 (4.6-6.2); White Blood Count 9.3 K/mm3 (4.4-11.0)
[2020-07-21 13:07] LABS: Vitamin D,25 Hydroxy 32.5 ng/mL
[2020-07-21 13:09] LABS: ALB/GLOB Ratio 1.1 RATIO (0.9-2.4); AST(SGOT) 18 U/L (15-37); Alanine Aminotransfer ALT/SGPT 26 U/L (16-61); Albumin, Serum 4.1 g/dL (3.2-5.0); Alkaline Phosphatase 117 U/L (45-117); Anion Gap 6 (5-15); BUN 21 mg/dL (7-18); BUN/Creat Ratio 15.9 RATIO (10-20); Calcium,Total 9.5 mg/dL (8.5-10.1); Chloride 106 mmol/L (98-107); Cholesterol 201 mg/dL (200); Creatinine, Serum 1.32 mg/dL (0.70-1.30); EST Glomerular Filtration Rate 58 mL/min (>60); Est Glom Filt Rate - Afr Amer 70 mL/min (>60); Globulin 3.9 g/dL (2.2-4.2); Glucose 91 mg/dL (74-106); High Density Lipoprotein 47 mg/dL; Potassium 4.3 mmol/L (3.5-5.1); Sodium Level 139 mmol/L (136-145); Triglycerides 155 mg/dL; Very Low Density Lipoprotein 31 mg/dL (5-40)
== END ==
PROVIDERS: PCP Family Medicine; Referring Provider Family Medicine; Visit Provider Family Medicine
DX: N18.30 Chronic kidney disease, stage 3 unspecified (principal); E78.00 Pure hypercholesterolemia, unspecified; E55.9 Vitamin D deficiency, unspecified
CPT/HCPCS: 36415; 80053; 80061; 82306; 85025

== ENCOUNTER → 2020-11-21 10:02 | Outpatient (CLI) | payer MEDICAID, SELFPAY ==
[2020-11-21 12:06] LABS: Absolute Lymphocyte Count 2.12 X10^3/uL (0.83-4.51); Absolute Neutrophil Count 4.6 X10^3/uL (2.0-7.7); Basophil# 0.07 X10^3/uL; Basophil% 0.8 % (0-1); Eosinophil# 0.57 X10^3/uL; Eosinophils% 6.8 % (0-5); Hematocrit 43.8 % (40-54); Hemoglobin 14.2 g/dL (13.0-16.5); Lymphocyte # 2.12 X10^3/ul (0.83-4.51); Lymphocyte % 25.4 % (19-41); Mean Corp Hgb Conc 32.4 g/dL (32-36); Mean Corpuscular Hgb 30.5 pg (27.0-32.0); Mean Corpuscular Volume 94.2 fL (80-94); Mean Platelet Vol. 11.5 fl (6.2-12.0); Monocyte# 0.99 X10^3/uL; Monocyte% 11.9 % (0-10); NRBC Flagged by Analyzer 0 % (0-5); Neutrophil # 4.57 X10^3/uL (2.7-7.7); Neutrophil % 54.7 % (47-70); Platelet Count 265 K/mm3 (150-450); RBC Distribution Width CV 12.9 % (11.6-14.6); Red Blood Count 4.65 M/mm3 (4.6-6.2); White Blood Count 8.4 K/mm3 (4.4-11.0)
[2020-11-21 12:39] LABS: Protein:Creat Ratio 290 mg/g CRE (0-200)
[2020-11-21 12:44] LABS: ALB/GLOB Ratio 0.9 RATIO (0.9-2.4); AST(SGOT) 21 U/L (15-37); Alanine Aminotransfer ALT/SGPT 27 U/L (16-61); Albumin, Serum 3.7 g/dL (3.2-5.0); Alkaline Phosphatase 110 U/L (45-117); Anion Gap 9 (5-15); BUN 15 mg/dL (7-18); BUN/Creat Ratio 11.6 RATIO (10-20); Calcium,Total 9.1 mg/dL (8.5-10.1); Chloride 103 mmol/L (98-107); Cholesterol 145 mg/dL (200); Creatinine, Serum 1.29 mg/dL (0.70-1.30); EST Glomerular Filtration Rate 59 mL/min (>60); Est Glom Filt Rate - Afr Amer 72 mL/min (>60); Globulin 4.1 g/dL (2.2-4.2); Glucose 100 mg/dL (74-106); High Density Lipoprotein 51 mg/dL; Phosphorus 2.3 mg/dL (2.5-4.9); Protein, Total 7.8 g/dL (6.4-8.2); Sodium Level 138 mmol/L (136-145); Triglycerides 91 mg/dL; Very Low Density Lipoprotein 18 mg/dL (5-40)
[2020-11-21 13:24] LABS: Vitamin D,25 Hydroxy 31.7 ng/mL
[2020-11-21 13:29] LABS: PTHIN 46.7 pg/mL (18.4-80.1)
== END ==
PROVIDERS: PCP Family Medicine; Visit Provider Family Medicine
DX: N18.30 Chronic kidney disease, stage 3 unspecified (principal); E78.00 Pure hypercholesterolemia, unspecified; E55.9 Vitamin D deficiency, unspecified
CPT/HCPCS: 36415; 80053; 80061; 82306; 82570; 83970; 84100; 84156; 85025

== ENCOUNTER 2021-03-24 14:53 | Outpatient (CLI) | payer MEDICARE, MEDICAID, SELFPAY ==
[2021-03-24 18:35] LABS: PSA,Total - Annual Screen 3.04 ng/mL (0.00-4.00)
== END 2021-03-24 23:59 | disposition short-term general hospital (02) ==
LOC: MFPLAB 14:57
PROVIDERS: PCP Family Medicine; Referring Provider Family Medicine; Visit Provider Family Medicine
DX: Z12.5 Encounter for screening for malignant neoplasm of prostate (principal)
CPT/HCPCS: 36415; 84153; G0103

== ENCOUNTER 2021-04-07 13:51 | Outpatient (CLI) | payer MEDICARE, MEDICAID, SELFPAY ==
--- NOTE | 2021-04-07 14:01 | CT_ITS ---
STUDY: LOW DOSE CT LUNG CANCER SCREENING REASON FOR EXAM: Male, 66 years old. *NICOTINE dependency. RADIATION DOSAGE (If Supplied By Facility): CTDIvol = ( 3.02 ) mGy, DLP = ( 116.26 ) mGycm TECHNIQUE: No contrast was administered. Low dose technique was utilized (average mAS-38 and kVp 120). 1.25 mm axial source images with a slice interval of 1.25-mm were reconstructed in lung windows. 2.5 mm axial source images with a slice interval of 2.5-mm were reconstructed in lung windows. 5.0 mm axial source images with a slice interval of 5.0-mm were reconstructed in soft tissue windows. Nodule measured using lung windows on PACS and/or independent workstation with automated measurement of minimum and maximum diameter. Nodule measurement reported as average diameter rounded to the nearest whole number. Growth is defined as an increase ins size of greater than 1.5 mm. COMPARISON: 09/23/2019. NODULES: Total lung nodules (excluding granulomas): 0 Emphysema: Diffuse emphysematous changes of the lungs are stable. Endobronchial lesion: None Aorta: Stable atherosclerotic changes of the aorta without aneurysm. 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 Heart: Normal in size Pulmonary artery: Normal Mediastinal nodes: Not Other chest and abdominal findings: Degenerative changes of the thoracic spine. CT/Low Dose CT Lung Screening IMPRESSION: Lung-RADS category 1 - Continue annual screening with LDCT in 12 months. IMPORTANT NOTES FOR USE: ACR Lung-RADS Version 1.1 Assessment Categories Release Date: 2018 Category: Coded 0-4 bases on nodule(s) with highest degree of suspicion. Negative screen is defined as categories 1 and 2; a positive screen is defined as categories 3 and 4. Category 3 and 4A nodules that are unchanged on interval CT should be coded as category 2, and individuals returned to screening in 12 months. Category 4X: Category 3 or 4 nodules with additional imaging findings that increase the suspicion of lung cancer, such as spiculation, GGN that doubles in size in 1 year, enlarged lymph notes, etc. Category Modifiers: S (significant finding unrelated to lung cancer) Electronically Signed: Dru Cruz DO at 17:04 EST ,
== END 2021-04-07 23:59 | disposition home or self-care (01) ==
LOC: CT 13:55
PROVIDERS: PCP Family Medicine; Visit Provider Family Medicine
DX: Z12.2 Encounter for screening for malignant neoplasm of respiratory organs (principal); Z87.891 Personal history of nicotine dependence
CPT/HCPCS: 71271

== ENCOUNTER → 2021-06-21 | Outpatient (CLI) | payer MEDICARE, MEDICAID, SELFPAY ==
[2021-06-21 14:00] LABS: Bacteria 0 SEEN /hpf (None Seen); Mucous, Urine 0 SEEN /hpf (<or=2+); Red Blood Cells-Urine 0 SEEN /hpf (0-5); Squamous Epithelial Cells - UA 0 SEEN /hpf (0-5); White Blood Cells 0 SEEN /hpf (0-5)
[2021-06-21 15:22] LABS: Color, Urine Yellow (Yellow); Glucose, Dipstick Normal (Normal); Ketone-Dipstick Negative (Negative); Leukocyte Esterase-Dipstick Negative /ul (Negative); Nitrite-Dipstick Negative (Negative); Occult Blood-Urine Negative /ul (Negative); Protein-Dipstick 30 mg/dl (Negative); Specific Gravity, Urine 1.025 (1.002-1.030); Urine Bilirubin Dipstick Negative (Negative); Urine Clarity Clear (Clear); Urine Urobilinogen 1 mg/dl (Normal)
[2021-06-21 15:27] LABS: Absolute Lymphocyte Count 1.69 X10^3/uL (0.83-4.51); Absolute Neutrophil Count 4.5 X10^3/uL (2.0-7.7); Basophil# 0.05 X10^3/uL; Basophil% 0.7 % (0-1); Eosinophils% 6.7 % (0-5); Hematocrit 43.7 % (40-54); Hemoglobin 14.5 g/dL (13.0-16.5); Lymphocyte # 1.69 X10^3/ul (0.83-4.51); Lymphocyte % 22.7 % (19-41); Mean Corp Hgb Conc 33.2 g/dL (32-36); Mean Corpuscular Hgb 30.9 pg (27.0-32.0); Mean Corpuscular Volume 93.2 fL (80-94); Mean Platelet Vol. 11.7 fl (6.2-12.0); Monocyte# 0.68 X10^3/uL; Monocyte% 9.2 % (0-10); NRBC Flagged by Analyzer 0 % (0-5); Neutrophil # 4.49 X10^3/uL (2.7-7.7); Neutrophil % 60.4 % (47-70); Platelet Count 265 K/mm3 (150-450); Protein, Urine (Random) 34.1 mg/dL (<11.9); Protein:Creat Ratio 116 mg/g CRE (0-200); RBC Distribution Width CV 12.7 % (11.6-14.6); RBC Distribution Width SD 43.7 fl (35.1-43.9); Red Blood Count 4.69 M/mm3 (4.6-6.2); White Blood Count 7.4 K/mm3 (4.4-11.0)
[2021-06-21 15:44] LABS: Hemoglobin A1c 5.4 % (3.8-5.6)
[2021-06-21 15:58] LABS: PTHIN 56.8 pg/mL (18.4-80.1)
[2021-06-21 16:02] LABS: Vitamin D,25 Hydroxy 29.6 ng/mL
[2021-06-21 16:09] LABS: AST(SGOT) 20 U/L (15-37); Alanine Aminotransfer ALT/SGPT 30 U/L (16-61); Albumin, Serum 3.9 g/dL (3.2-5.0); Alkaline Phosphatase 98 U/L (45-117); Anion Gap 7 (5-15); BUN 24 mg/dL (7-18); BUN/Creat Ratio 16.2 RATIO (10-20); Calcium,Total 8.9 mg/dL (8.5-10.1); Chloride 105 mmol/L (98-107); Cholesterol 156 mg/dL (200); Creatinine, Serum 1.48 mg/dL (0.70-1.30); EST Glomerular Filtration Rate 51 mL/min (>60); Est Glom Filt Rate - Afr Amer 61 mL/min (>60); Globulin 3.8 g/dL (2.2-4.2); Glucose 124 mg/dL (74-106); High Density Lipoprotein 42 mg/dL; Phosphorus 2.7 mg/dL (2.5-4.9); Protein, Total 7.7 g/dL (6.4-8.2); Sodium Level 138 mmol/L (136-145); Thyroid Stim Hormone (TSH) 0.89 uIU/mL (0.358-3.74); Triglycerides 287 mg/dL; Very Low Density Lipoprotein 57 mg/dL (5-40)
== END | disposition home or self-care (01) ==
LOC: MFPLAB 13:56
PROVIDERS: PCP Family Medicine; Referring Provider Family Medicine; Visit Provider Family Medicine
DX: I25.10 Atherosclerotic heart disease of native coronary artery without angina pectoris (principal); N18.30 Chronic kidney disease, stage 3 unspecified; E55.9 Vitamin D deficiency, unspecified; R73.02 Impaired glucose tolerance (oral); I12.9 Hypertensive chronic kidney disease with stage 1 through stage 4 chronic kidney disease, or unspecified chronic kidney disease
CPT/HCPCS: 36415; 80053; 80061; 81001; 82306; 82570; 83036; 83970; 84100; 84156; 84443; 85025

== ENCOUNTER → 2021-10-17 | Outpatient (CLI) | payer MEDICARE, MEDICAID, SELFPAY ==
[2021-10-17 15:52] LABS: Bacteria 0 SEEN /hpf (None Seen); Red Blood Cells-Urine 0 SEEN /hpf (0-5)
[2021-10-17 18:12] LABS: Color, Urine Amber (Yellow); Glucose, Dipstick Normal (Normal); Ketone-Dipstick 5 mg/dl (Negative); Leukocyte Esterase-Dipstick 25 /ul (Negative); Nitrite-Dipstick Negative (Negative); Occult Blood-Urine Negative /ul (Negative); Protein-Dipstick 30 mg/dl (Negative); Urine Bilirubin Dipstick Negative (Negative); Urine Clarity Clear (Clear); Urine Urobilinogen 1 mg/dl (Normal)
[2021-10-17 18:12] LABS: Absolute Lymphocyte Count 1.68 X10^3/uL (0.83-4.51); Absolute Neutrophil Count 5.3 X10^3/uL (2.0-7.7); Basophil# 0.05 X10^3/uL; Basophil% 0.6 % (0-1); Eosinophil# 0.29 X10^3/uL; Eosinophils% 3.6 % (0-5); Hemoglobin 14.3 g/dL (13.0-16.5); Lymphocyte # 1.68 X10^3/ul (0.83-4.51); Lymphocyte % 20.7 % (19-41); Mean Corpuscular Hgb 32.1 pg (27.0-32.0); Mean Corpuscular Volume 94.4 fL (80-94); Mean Platelet Vol. 11.4 fl (6.2-12.0); Monocyte# 0.76 X10^3/uL; Monocyte% 9.3 % (0-10); NRBC Flagged by Analyzer 0 % (0-5); Neutrophil # 5.33 X10^3/uL (2.7-7.7); Neutrophil % 65.6 % (47-70); Platelet Count 279 K/mm3 (150-450); RBC Distribution Width CV 13.1 % (11.6-14.6); RBC Distribution Width SD 45.1 fl (35.1-43.9); Red Blood Count 4.45 M/mm3 (4.6-6.2); White Blood Count 8.1 K/mm3 (4.4-11.0)
[2021-10-17 18:24] LABS: AST(SGOT) 35 U/L (15-37); Alanine Aminotransfer ALT/SGPT 35 U/L (16-61); Albumin, Serum 3.8 g/dL (3.2-5.0); Alkaline Phosphatase 91 U/L (45-117); Anion Gap 7 (5-15); BUN 24 mg/dL (7-18); Chloride 106 mmol/L (98-107); Cholesterol 137 mg/dL (200); Creatinine, Serum 1.72 mg/dL (0.70-1.30); EST Glomerular Filtration Rate 43 mL/min (>60); Est Glom Filt Rate - Afr Amer 52 mL/min (>60); Globulin 3.8 g/dL (2.2-4.2); Glucose 100 mg/dL (74-106); High Density Lipoprotein 44 mg/dL; Phosphorus 2.5 mg/dL (2.5-4.9); Potassium 4.1 mmol/L (3.5-5.1); Protein, Total 7.6 g/dL (6.4-8.2); Sodium Level 138 mmol/L (136-145); Triglycerides 223 mg/dL; Very Low Density Lipoprotein 45 mg/dL (5-40)
[2021-10-17 18:31] LABS: Mucous, Urine 4+ /hpf (<or=2+); Squamous Epithelial Cells - UA 0-5 SEEN /hpf (0-5); White Blood Cells 0-5 SEEN /hpf (0-5)
[2021-10-17 18:32] LABS: Hyaline Cast 0-5 SEEN /lpf (0-5)
[2021-10-17 18:36] LABS: Hemoglobin A1c 5.7 % (3.8-5.6)
[2021-10-17 18:54] LABS: Protein, Urine (Random) 31.4 mg/dL (<11.9); Protein:Creat Ratio 106 mg/g CRE (0-200)
[2021-10-17 18:58] LABS: Vitamin D,25 Hydroxy 40.3 ng/mL
[2021-10-18 10:56] LABS: PTHIN 44.8 pg/mL (18.4-80.1)
== END | disposition home or self-care (01) ==
LOC: MFPLAB 14:53
PROVIDERS: PCP Family Medicine; Visit Provider Family Medicine
DX: I25.10 Atherosclerotic heart disease of native coronary artery without angina pectoris (principal); N18.30 Chronic kidney disease, stage 3 unspecified; E55.9 Vitamin D deficiency, unspecified; R73.02 Impaired glucose tolerance (oral)
CPT/HCPCS: 36415; 80053; 80061; 81001; 82306; 82570; 83036; 83970; 84100; 84156; 85025

== ENCOUNTER → 2021-11-01 | Outpatient (CLI) | payer MEDICARE, MEDICAID, SELFPAY ==
[2021-11-01 12:27] LABS: Anion Gap 7 (5-15); BUN 17 mg/dL (7-18); BUN/Creat Ratio 13.4 RATIO (10-20); Calcium,Total 9.6 mg/dL (8.5-10.1); Chloride 105 mmol/L (98-107); Creatinine, Serum 1.27 mg/dL (0.70-1.30); EST Glomerular Filtration Rate 60 mL/min (>60); Est Glom Filt Rate - Afr Amer 73 mL/min (>60); Glucose 93 mg/dL (74-106); Sodium Level 138 mmol/L (136-145)
== END | disposition home or self-care (01) ==
LOC: MFPLAB 11:01
PROVIDERS: PCP Family Medicine; Referring Provider Family Medicine; Visit Provider Family Medicine
DX: N18.30 Chronic kidney disease, stage 3 unspecified (principal)
CPT/HCPCS: 36415; 80048

== ENCOUNTER → 2022-03-27 | Outpatient (CLI) | payer MEDICARE, MEDICAID, SELFPAY ==
[2022-03-27 14:56] LABS: Bacteria 0 SEEN /hpf (None Seen); Mucous, Urine 0 SEEN /hpf (<or=2+); Red Blood Cells-Urine 0 SEEN /hpf (0-5); Squamous Epithelial Cells - UA 0 SEEN /hpf (0-5); White Blood Cells 0 SEEN /hpf (0-5)
[2022-03-27 18:20] LABS: Absolute Lymphocyte Count 1.56 X10^3/uL (0.83-4.51); Absolute Neutrophil Count 5.5 X10^3/uL (2.0-7.7); Basophil# 0.04 X10^3/uL; Basophil% 0.5 % (0-1); Eosinophil# 0.46 X10^3/uL; Eosinophils% 5.4 % (0-5); Hematocrit 44.2 % (40-54); Hemoglobin 14.3 g/dL (13.0-16.5); Lymphocyte # 1.56 X10^3/ul (0.83-4.51); Lymphocyte % 18.3 % (19-41); Mean Corp Hgb Conc 32.4 g/dL (32-36); Mean Corpuscular Hgb 30.2 pg (27.0-32.0); Mean Corpuscular Volume 93.2 fL (80-94); Mean Platelet Vol. 11.5 fl (6.2-12.0); Monocyte% 10.6 % (0-10); NRBC Flagged by Analyzer 0 % (0-5); Neutrophil # 5.53 X10^3/uL (2.7-7.7); Neutrophil % 64.8 % (47-70); Platelet Count 291 K/mm3 (150-450); RBC Distribution Width CV 12.5 % (11.6-14.6); RBC Distribution Width SD 42.8 fl (35.1-43.9); Red Blood Count 4.74 M/mm3 (4.6-6.2); White Blood Count 8.5 K/mm3 (4.4-11.0)
[2022-03-27 18:31] LABS: Protein, Urine (Random) 8.7 mg/dL (<11.9); Protein:Creat Ratio 74 mg/g CRE (0-200)
[2022-03-27 18:34] LABS: Color, Urine Yellow (Yellow); Glucose, Dipstick Normal (Normal); Ketone-Dipstick Negative (Negative); Leukocyte Esterase-Dipstick Negative /ul (Negative); Nitrite-Dipstick Negative (Negative); Occult Blood-Urine Negative /ul (Negative); Protein-Dipstick Negative (Negative); Urine Bilirubin Dipstick Negative (Negative); Urine Clarity Clear (Clear); Urine Urobilinogen Normal (Normal)
[2022-03-27 18:35] LABS: ALB/GLOB Ratio 1.1 RATIO (0.9-2.4); AST(SGOT) 28 U/L (15-37); Alanine Aminotransfer ALT/SGPT 34 U/L (16-61); Albumin, Serum 3.9 g/dL (3.2-5.0); Alkaline Phosphatase 100 U/L (45-117); Anion Gap 9 (5-15); BUN 23 mg/dL (7-18); BUN/Creat Ratio 12.8 RATIO (10-20); Calcium,Total 9.3 mg/dL (8.5-10.1); Chloride 106 mmol/L (98-107); Cholesterol 162 mg/dL (200); Creatinine, Serum 1.79 mg/dL (0.70-1.30); EST Glomerular Filtration Rate 41 mL/min (>60); Est Glom Filt Rate - Afr Amer 49 mL/min (>60); Globulin 3.7 g/dL (2.2-4.2); Glucose 125 mg/dL (74-106); High Density Lipoprotein 42 mg/dL; PSA,Total - Annual Screen 2.55 ng/mL (0.00-4.00); Phosphorus 2.5 mg/dL (2.5-4.9); Potassium 4.2 mmol/L (3.5-5.1); Protein, Total 7.6 g/dL (6.4-8.2); Sodium Level 139 mmol/L (136-145); Triglycerides 248 mg/dL; Very Low Density Lipoprotein 50 mg/dL (5-40)
[2022-03-27 19:29] LABS: Hemoglobin A1c 5.7 % (3.8-5.6)
== END | disposition home or self-care (01) ==
LOC: MFPLAB 14:52
PROVIDERS: PCP Family Medicine; Referring Provider Family Medicine; Visit Provider Family Medicine
DX: N18.30 Chronic kidney disease, stage 3 unspecified (principal); I25.10 Atherosclerotic heart disease of native coronary artery without angina pectoris; Z12.5 Encounter for screening for malignant neoplasm of prostate; R73.02 Impaired glucose tolerance (oral)
CPT/HCPCS: 36415; 80053; 80061; 81001; 82570; 83036; 83970; 84100; 84153; 84156; 85025; G0103

== ENCOUNTER → 2022-04-03 | Outpatient (CLI) | payer MEDICARE, MEDICAID, SELFPAY ==
[2022-04-03 13:29] LABS: Anion Gap 6 (5-15); BUN 20 mg/dL (7-18); BUN/Creat Ratio 13.5 RATIO (10-20); Calcium,Total 9.2 mg/dL (8.5-10.1); Chloride 107 mmol/L (98-107); Creatinine, Serum 1.48 mg/dL (0.70-1.30); EST Glomerular Filtration Rate 51 mL/min (>60); Est Glom Filt Rate - Afr Amer 61 mL/min (>60); Glucose 95 mg/dL (74-106); Potassium 4.3 mmol/L (3.5-5.1); Sodium Level 138 mmol/L (136-145)
== END | disposition home or self-care (01) ==
LOC: MFPLAB 11:09
PROVIDERS: PCP Family Medicine; Referring Provider Family Medicine; Visit Provider Family Medicine
DX: N18.30 Chronic kidney disease, stage 3 unspecified (principal)
CPT/HCPCS: 36415; 80048

== ENCOUNTER → 2022-08-06 | Outpatient (CLI) | payer MEDICARE, MEDICAID, SELFPAY ==
[2022-08-06 12:24] LABS: Red Blood Cells-Urine 0 SEEN /hpf (0-5); Squamous Epithelial Cells - UA 0 SEEN /hpf (0-5); White Blood Cells 0 SEEN /hpf (0-5)
[2022-08-06 12:33] LABS: Absolute Lymphocyte Count 1.63 X10^3/uL (0.83-4.51); Absolute Neutrophil Count 4.6 X10^3/uL (2.0-7.7); Basophil# 0.04 X10^3/uL; Basophil% 0.5 % (0-1); Eosinophil# 0.42 X10^3/uL; Eosinophils% 5.6 % (0-5); Hematocrit 42.7 % (40-54); Lymphocyte # 1.63 X10^3/ul (0.83-4.51); Lymphocyte % 21.7 % (19-41); Mean Corp Hgb Conc 32.8 g/dL (32-36); Mean Corpuscular Hgb 30.2 pg (27.0-32.0); Mean Platelet Vol. 11.3 fl (6.2-12.0); Monocyte# 0.81 X10^3/uL; Monocyte% 10.8 % (0-10); NRBC Flagged by Analyzer 0 % (0-5); Neutrophil % 61.3 % (47-70); Platelet Count 293 K/mm3 (150-450); RBC Distribution Width CV 13.2 % (11.6-14.6); RBC Distribution Width SD 44.5 fl (35.1-43.9); Red Blood Count 4.64 M/mm3 (4.6-6.2); White Blood Count 7.5 K/mm3 (4.4-11.0)
[2022-08-06 13:11] LABS: PTHIN 46.6 pg/mL (18.4-80.1)
[2022-08-06 13:13] LABS: Vitamin D,25 Hydroxy 49.3 ng/mL
[2022-08-06 13:26] LABS: AST(SGOT) 19 U/L (15-37); Alanine Aminotransfer ALT/SGPT 23 U/L (16-61); Albumin, Serum 3.8 g/dL (3.2-5.0); Alkaline Phosphatase 106 U/L (45-117); Anion Gap 8 (5-15); BUN 22 mg/dL (7-18); BUN/Creat Ratio 13.9 RATIO (10-20); Calcium,Total 9.6 mg/dL (8.5-10.1); Chloride 104 mmol/L (98-107); Cholesterol 146 mg/dL (200); Creatinine, Serum 1.58 mg/dL (0.70-1.30); EST Glomerular Filtration Rate 47 mL/min (>60); Est Glom Filt Rate - Afr Amer 57 mL/min (>60); Globulin 3.8 g/dL (2.2-4.2); Glucose 101 mg/dL (74-106); High Density Lipoprotein 47 mg/dL; Phosphorus 2.8 mg/dL (2.5-4.9); Potassium 4.4 mmol/L (3.5-5.1); Protein, Total 7.6 g/dL (6.4-8.2); Sodium Level 137 mmol/L (136-145); Triglycerides 141 mg/dL; Very Low Density Lipoprotein 28 mg/dL (5-40)
[2022-08-06 14:12] LABS: Hemoglobin A1c 5.6 % (3.8-5.6)
[2022-08-06 15:24] LABS: Color, Urine Yellow (Yellow); Glucose, Dipstick Normal (Normal); Ketone-Dipstick Negative (Negative); Leukocyte Esterase-Dipstick Negative /ul (Negative); Nitrite-Dipstick Negative (Negative); Occult Blood-Urine Negative /ul (Negative); Protein-Dipstick 15 mg/dl (Negative); Specific Gravity, Urine 1.025 (1.002-1.030); Urine Bilirubin Dipstick Negative (Negative); Urine Clarity Sl. Cloudy (Clear); Urine Urobilinogen 1 mg/dl (Normal)
[2022-08-06 15:33] LABS: Bacteria 1+ /hpf (None Seen); Mucous, Urine 1+ /hpf (<or=2+)
[2022-08-06 15:49] LABS: Protein, Urine (Random) 25.5 mg/dL (<11.9); Protein:Creat Ratio 84 mg/g CRE (0-200)
== END | disposition home or self-care (01) ==
LOC: MFPLAB 10:53
PROVIDERS: PCP Family Medicine; Visit Provider Family Medicine
DX: I25.10 Atherosclerotic heart disease of native coronary artery without angina pectoris (principal); N18.30 Chronic kidney disease, stage 3 unspecified; R73.02 Impaired glucose tolerance (oral)
CPT/HCPCS: 36415; 80053; 80061; 81001; 82306; 82570; 83036; 83970; 84100; 84156; 85025

== ENCOUNTER → 2022-12-05 | Outpatient (CLI) | payer MEDICARE, SELFPAY ==
[2022-12-05 13:21] LABS: Bacteria 0 SEEN /hpf (None Seen); Mucous, Urine 0 SEEN /hpf (<or=2+); Red Blood Cells-Urine 0 SEEN /hpf (0-5); Squamous Epithelial Cells - UA 0 SEEN /hpf (0-5); White Blood Cells 0 SEEN /hpf (0-5)
[2022-12-05 15:08] LABS: Color, Urine Yellow (Yellow); Glucose, Dipstick Normal (Normal); Ketone-Dipstick Negative (Negative); Leukocyte Esterase-Dipstick Negative /ul (Negative); Nitrite-Dipstick Negative (Negative); Occult Blood-Urine Negative /ul (Negative); Protein-Dipstick 15 mg/dl (Negative); Urine Bilirubin Dipstick Negative (Negative); Urine Clarity Clear (Clear); Urine Urobilinogen Normal (Normal)
[2022-12-05 15:18] LABS: Absolute Lymphocyte Count 2.17 X10^3/uL (0.83-4.51); Absolute Neutrophil Count 5.2 X10^3/uL (2.0-7.7); Basophil# 0.08 X10^3/uL; Basophil% 0.9 % (0-1); Eosinophil# 0.44 X10^3/uL; Eosinophils% 4.9 % (0-5); Hematocrit 43.9 % (40-54); Hemoglobin 13.9 g/dL (13.0-16.5); Lymphocyte # 2.17 X10^3/ul (0.83-4.51); Lymphocyte % 24.1 % (19-41); Mean Corp Hgb Conc 31.7 g/dL (32-36); Mean Corpuscular Hgb 29.2 pg (27.0-32.0); Mean Corpuscular Volume 92.2 fL (80-94); Mean Platelet Vol. 11.5 fl (6.2-12.0); Monocyte# 1.06 X10^3/uL; Monocyte% 11.8 % (0-10); NRBC Flagged by Analyzer 0 % (0-5); Neutrophil # 5.22 X10^3/uL (2.7-7.7); Platelet Count 309 K/mm3 (150-450); RBC Distribution Width CV 13.3 % (11.6-14.6); RBC Distribution Width SD 45.2 fl (35.1-43.9); Red Blood Count 4.76 M/mm3 (4.6-6.2)
[2022-12-05 15:47] LABS: Protein, Urine (Random) 14.9 mg/dL (<11.9); Protein:Creat Ratio 152 mg/g CRE (0-200)
[2022-12-05 15:53] LABS: Vitamin D,25 Hydroxy 42.8 ng/mL
[2022-12-05 15:57] LABS: ALB/GLOB Ratio 1.1 RATIO (0.9-2.4); AST(SGOT) 18 U/L (15-37); Alanine Aminotransfer ALT/SGPT 30 U/L (16-61); Albumin, Serum 3.8 g/dL (3.2-5.0); Alkaline Phosphatase 115 U/L (45-117); Anion Gap 6 (5-15); BUN 16 mg/dL (7-18); BUN/Creat Ratio 10.1 RATIO (10-20); Calcium,Total 9.2 mg/dL (8.5-10.1); Chloride 105 mmol/L (98-107); Cholesterol 141 mg/dL (200); Creatinine, Serum 1.59 mg/dL (0.70-1.30); EST Glomerular Filtration Rate 46 mL/min (>60); Est Glom Filt Rate - Afr Amer 56 mL/min (>60); Globulin 3.6 g/dL (2.2-4.2); Glucose 104 mg/dL (74-106); High Density Lipoprotein 43 mg/dL; Potassium 3.9 mmol/L (3.5-5.1); Protein, Total 7.4 g/dL (6.4-8.2); Sodium Level 137 mmol/L (136-145); Triglycerides 147 mg/dL; Very Low Density Lipoprotein 29 mg/dL (5-40)
[2022-12-06 08:21] LABS: PTHIN 60.4 pg/mL (18.4-80.1)
== END | disposition home or self-care (01) ==
PROVIDERS: PCP Family Medicine; Referring Provider Family Medicine; Visit Provider Family Medicine
DX: I25.10 Atherosclerotic heart disease of native coronary artery without angina pectoris (principal); E21.3 Hyperparathyroidism, unspecified; E55.9 Vitamin D deficiency, unspecified
CPT/HCPCS: 80053; 80061; 81001; 82306; 82570; 83970; 84156; 85025

== ENCOUNTER → 2024-10-19 | Outpatient (CLI) | payer OTHER, SELFPAY ==
--- NOTE | 2024-10-19 08:41 | AAAS_ITS ---
Reason For Study Reason For Study: Screening for AAA Aorta Measurements Aorta Doppler Measurements Proximal aorta measures1.49cm x 1.75cm. in cross-sectional Peak systolic flow velocities within the proximal aorta axis. measure 107 cm/sec. Proximal aorta measures1.43cm. in longitudinal axis. Peak systolic flow velocities within the mid aorta measure Mid aorta measures1.93cm x 1.82cm. in cross-sectional axis. 87 cm/sec. Mid aorta measures1.45cm. in longitudinal axis. Peak systolic flow velocities within the distal aorta Distal aorta measures1.48cm x 1.63cm. in cross-sectional measure 103 cm/sec. axis. Distal aorta measures1.73cm. in longitudinal axis. Left Iliac Artery Left iliac artery measures 0.90cm x 0.77 cm. in the cross-sectional axis. Left iliac artery measures 0.62 cm. in the longitudinal axis. Peak systolic velocity in the left iliac artery measures 181 cm/sec. Right Iliac Artery Right iliac artery measures 0.92cm x 1.13 cm. in the cross-sectional axis. Right iliac artery measures 0.97 cm. in the longitudinal axis. Peak systolic velocity in the right iliac artery measures 186 cm/sec. Procedure Aorta IVC Iliac vasculature or bypass grafts 15086. Exam performed in department. VL/AAA Screening Interpretation Summary The dimensions of the intra-abdominal aorta are normal, without evidence of ane urysmal dilatation. The iliac arteries are also normal in caliber bilaterally. The intra-abdominal aorta and iliac art eries appear patent, demonstrating normal, pulsatile arterial flow. Peak systolic velocities in the iliac arteries are slightly elevated, which may be indicative of stenosis. Clinical correlation is advised. Ordering Physician: Nikolai Stephenson Referring Physician: Jamarcus Bloom Performed By: Angelia Riojas RVT, RDCS and Student
== END | disposition home or self-care (01) ==
LOC: CVS 08:39
PROVIDERS: PCP Family Medicine; Referring Provider Internal Medicine; Visit Provider Internal Medicine
DX: Z13.6 Encounter for screening for cardiovascular disorders (principal)
CPT/HCPCS: 76706